=== PATIENT | male | born 1950 | race Asian ===

== ENCOUNTER 2021-02-10 17:40 | Emergency (ER) | payer MEDICARE ==
[~2021-02-10] VITALS: Ht 162.6 cm; Wt 65.0 kg
[2021-02-10] MEDS ORDERED: DONE23TA3 PO (18:50)
[2021-02-10] MEDS ORDERED: TAMS-13 PO (18:50)
[2021-02-10] MEDS ORDERED: ATOR20TA65 PO (18:50)
[2021-02-10] MEDS ORDERED: LISI-661 PO (18:50)
[2021-02-10] MEDS ORDERED: PENICILLIN V POTASSIUM 500 MG TABLET PO ONE (20:45)
[2021-02-10] MEDS ORDERED: LIDOCAINE 1% 10 ML VIAL ID ONE (20:45)
[2021-02-10] MEDS ORDERED: DONE10TA8 PO (20:48)
[2021-02-10] MEDS ORDERED: ATOR40TA28 PO (20:48)
[2021-02-10] MEDS ORDERED: LATA2.5D14 OU (20:48)
[2021-02-10 22:05] VITALS: BP 121/65
== END 2021-02-10 21:45 | disposition home or self-care (01) ==
LOC: EMS 17:48
DX: K04.7 Periapical abscess without sinus (principal); Z79.899 Other long term (current) drug therapy
CPT/HCPCS: 99283; J3490